=== PATIENT | female | born 2000 | race African-American/Black ===

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

== ENCOUNTER 2020-07-14 15:09 | Outpatient (CLI) | payer OTHER | END 2020-07-14 19:42 | disposition home or self-care (01) | LOC: LABW 15:09 | DX: Z01.84 Encounter for antibody response examination (principal) | CPT/HCPCS: 36415; 86706 ==

== ENCOUNTER 2020-09-07 16:17 | Outpatient (CLI) | payer OTHER | END 2020-09-07 19:15 | disposition home or self-care (01) | LOC: LABW 16:17 | DX: Z01.84 Encounter for antibody response examination (principal) | CPT/HCPCS: 36415; 86706 ==

== ENCOUNTER 2021-12-10 09:36 | Outpatient (CLI) | payer OTHER | END 2021-12-10 20:37 | disposition home or self-care (01) | LOC: US 09:36 | PROVIDERS: ATTEND Nurse Practitioner Family | DX: N91.4 Secondary oligomenorrhea (principal) ==